=== PATIENT | male | born 1960 | race Caucasian/White ===

== ENCOUNTER 2017-01-19 13:52 | Outpatient (CLI) | payer OTHER ==
[2017-01-19 15:16] LABS: Hematocrit 40.4 % (42.0-52.0); Mean Platelet Volume 7.2 fL (7.4-10.4); White Blood Cell (WBC) Count 7.6 thou/uL (4.8-10.8)
[2017-01-19 15:29] LABS: Anion Gap 12 mmol/L (10-20); BUN (Urea Nitrogen) 21 mg/dL (8.4-25.7); Calc. Creatinine Clearance 0 mL/min (70-130); Calcium 8.4 mg/dL (7.8-10.44); Carbon Dioxide 28 mmol/L (22-29); Chloride 103 mmol/L (98-107); Estimated GFR-MDRD 31
== END 2017-01-19 13:53 | disposition home or self-care (01) ==
LOC: LABBT 13:52
PROVIDERS: ATTEND Neurological Surgery
DX: Z01.818 Encounter for other preprocedural examination (principal); M54.16 Radiculopathy, lumbar region
CPT/HCPCS: 80048; 85027; 93005; 93010

== ENCOUNTER 2017-03-26 12:54 | Emergency (ER) | payer OTHER, SELFPAY ==
[2017-03-26] MEDS ORDERED: Ketorolac Tromethamine 30 MG/ML VIAL ONE (13:46)
[2017-03-26] MEDS ORDERED: Ondansetron HCl/PF 4 MG/2 ML Vial ONE (13:46)
[2017-03-26 13:58] LABS: #Basophils 0.1 thou/uL (0.0-0.2); #Monocytes 0.4 thou/uL (0.11-0.59); %Basophils 0.6 % (0.0-1.0); %Eosinophils 0.2 % (0.0-10.0); %Lymphocytes 11.9 % (21.0-51.0); %Monocytes 5.1 % (0.0-10.0); %Neutrophils 82.2 % (42.0-75.0); Hemoglobin 14.5 g/dL (14.0-18.0); Mean Corpuscular HGB CONC 33.4 g/dL (32.0-36.0); Mean Corpuscular Hemoglobin 29.9 pg (27.0-31.0); Mean Corpuscular Volume 89.7 fl (80.0-94.0); Mean Platelet Volume 7.5 fL (7.4-10.4); Platelet Count 305 thou/uL (130-400); RBC Distribution Width 13.5 % (11.5-14.5); Red Blood Cell (RBC) Count 4.83 mill/uL (4.70-6.10); White Blood Cell (WBC) Count 8.5 thou/uL (4.8-10.8)
[2017-03-26] MEDS ORDERED: ISOVUE-370 76%-LOCM 1 ML ONE (13:58)
[2017-03-26 14:07] LABS: Bilirubin Negative (Negative); Blood, Urine Negative (Negative); Clarity CLEAR (Clear); Glucose, Urine (Dipstick) Negative (Negative); Leukocyte Negative (Negative); Nitrite Negative (Negative); Protein, Urine (Dipstick) Negative (Neg-Trace); Specific Gravity, Urine 1.025 (1.002-1.036); Urobilinogen 0.2 mg/dL (0.2-1.0); pH, Urine 5.5 (5.0-9.0)
[2017-03-26 14:23] LABS: ALT (SGPT) 11 U/L (8-55); AST (SGOT) 16 U/L (5-34); Albumin 3.8 g/dL (3.5-5.0); Alkaline Phosphatase 24 U/L (40-150); Anion Gap 9 mmol/L (10-20); BUN (Urea Nitrogen) 15 mg/dL (8.4-25.7); Bilirubin, Total 0.5 mg/dL (0.2-1.2); CK (CPK) 157 U/L (30-200); CRP (Inflammatory) Less than 0.50 mg/dL (= or < 0.5); Calc. Creatinine Clearance 0 mL/min (70-130); Calcium 8.7 mg/dL (7.8-10.44); Carbon Dioxide 29 mmol/L (22-29); Chloride 100 mmol/L (98-107); Estimated GFR-MDRD 67; Globulin 2.6 g/dL (2.4-3.5); Glucose 112 mg/dL (70-105); Potassium 4.4 mmol/L (3.5-5.1); Protein, Total 6.4 g/dL (6.0-8.3); Sodium 134 mmol/L (136-145)
--- NOTE | 2017-03-26 14:31 | RAD ---
TWO AP VIEWS OF THE CHEST: INDICATION: Severe chest pain and swelling in the left testicle. FINDINGS: The lungs are clear. The cardiomediastinal silhouette is within normal limits. There is no acute os seous abnormality. IMPRESSION: No acute cardiopulmonary abnormality. POS: KATHLEEN
[2017-03-26] MEDS ORDERED: Morphine 4 MG/ML Carpuject ONE (14:36)
--- NOTE | 2017-03-26 14:36 | ULT ---
SCROTAL SONOGRAM WITH DUPLEX EVALUATION: Date: 03/26/17 HISTORY: Left scrotal pain and swelling. FINDINGS: The right testicle is 3.6 cm in length and the left is also 3.6 cm. Each has a normal appearance and demonstrates good color and spectral Doppler flow. Fluid is present within each side of the scrotum. Multiple cysts arise from each epididymis. No solid masses are visible. A large cyst at the midline i s 8.3 x 6.5 x 6.4 cm greatest diameter. IMPRESSION: 1. No evidence of testicular mass or torsion. 2. Hydroceles. Multiple epididymal cysts. POS: [facility]
[2017-03-26 14:39] LABS: CKMB 1.3 ng/mL (0-6.6); Troponin I 0.016 ng/mL (< 0.028)
--- NOTE | 2017-03-26 15:56 | CT ---
CT ABDOMEN WITH CONTRAST CT PELVIS WITH CONTRAST: DATE: 03/26/17 HISTORY: 57-year-old male with severe lower abdominal pain, nausea and vomiting, fever, chills, and discolored urine. COMPARISON: CT abdomen and pelvis of 06/24/15. 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 No hydronephrosis or evidence for pyelonephritis. No solid renal neoplasm identified or large cyst. No abdominal aortic aneurysm. No free fluid or free air within th e abdominal cavity or pelvic cavity. Lung bases are grossly clear. No pleural effusion. Partial visua lization of what appears to be a large hydrocele in the right scrotum, as was previously the case. Th is is incompletely included on the images. No bowel-containing inguinal hernia identified. No major p athology identified involving pancreas, adrenals, or spleen. No small bowel dilation. Moderate to lar ge volume of colonic stool. Diffuse mild mural thickening of the urinary bladder, similar to prior CT . No major interval change identified. In the right lobe of the liver, there are two, subcentimeter, tiny, faint hypodensities which are too small to definitively characterize, in the right lobe of the liver. These are unchanged in size sinc e 2016. IMPRESSION: 1. Horseshoe kidney. 2. Probable constipation. 3. Partial visualization of what is probably right hydrocele, incompletely evaluated. 4. No definite acute findings within the abdominal cavity or pelvic cavity. JEREMY POS: TAI
[2017-03-26] MEDS ORDERED: Lidocaine Viscous Sol 2% 15 ml UD Cup ONE (16:22)
[2017-03-26] MEDS ORDERED: Famotidine/PF 20 mg/2ml Vial ONE (16:22)
[2017-03-26] MEDS ORDERED: Mag-Al 1200 mg/1200 mg/30 ML UDCUP ONE (16:22)
[2017-03-28 20:30] LABS: Chlamydia by PCR Not Detected (NotDetected); GC by PCR Not Detected (NotDetected)
== END 2017-03-26 17:35 | disposition home or self-care (01) ==
LOC: ERS 12:54
DX: N45.1 Epididymitis (principal); K59.00 Constipation, unspecified; F17.210 Nicotine dependence, cigarettes, uncomplicated; Z79.899 Other long term (current) drug therapy
CPT/HCPCS: 71045; 74177; 76870; 80053; 81003; 82550; 82553; 84484; 85025; 85652; 86140; 87491; 87591; 93005; 93976; 96361; 96374; 96375; J1885; J2270; J2405; S0028

== ENCOUNTER 2017-05-26 13:30 | Outpatient (CLI) | payer OTHER ==
[2017-05-26 14:09] LABS: Hemoglobin 13.6 g/dL (14.0-18.0); Mean Corpuscular HGB CONC 33.2 g/dL (32.0-36.0); Mean Corpuscular Hemoglobin 29.7 pg (27.0-31.0); Mean Corpuscular Volume 89.5 fl (80.0-94.0); Mean Platelet Volume 6.6 fL (7.4-10.4); Platelet Count 343 thou/uL (130-400); RBC Distribution Width 13.7 % (11.5-14.5); Red Blood Cell (RBC) Count 4.58 mill/uL (4.70-6.10)
[2017-05-26 14:34] LABS: Anion Gap 12 mmol/L (10-20); BUN (Urea Nitrogen) 13 mg/dL (8.4-25.7); Calc. Creatinine Clearance 0 mL/min (70-130); Calcium 8.5 mg/dL (7.8-10.44); Carbon Dioxide 24 mmol/L (22-29); Chloride 102 mmol/L (98-107); Estimated GFR-MDRD 54; Glucose 102 mg/dL (70-105); Potassium 4.6 mmol/L (3.5-5.1); Sodium 133 mmol/L (136-145)
== END 2017-05-26 13:31 | disposition home or self-care (01) ==
LOC: LABBT 13:30
PROVIDERS: ATTEND Neurological Surgery
DX: Z01.812 Encounter for preprocedural laboratory examination (principal); M54.16 Radiculopathy, lumbar region
CPT/HCPCS: 80048; 85027

== ENCOUNTER 2017-06-01 06:47 | Day surgery (SDC) | payer OTHER ==
--- NOTE | 2017-05-26 13:14 | HP ---
This is Cynthia Mcdonald, Physician Director Game with the Neurosurgery Service. ATTENDING PHYSICIAN: Dr. Bakari Steele. HISTORY OF PRESENT ILLNESS: The patient is a 57-year-old male seen in our office for severe left S1 radiculopathy, which began in 12/2015. He was evaluated with MRI, which revealed a left L5-S1 disk h erniation. We attempted to treat conservatively with steroids; however, he did not respond to any of these measures, therefore, left L5-S1 microdiskectomy was recommended by Dr. Steele. Since his visit with us, he has had an updated MRI, which shows persistent left L5 disk protrusion as well a s cardiac clearance obtained from [facility]. The patient understands the risks, benefits, and alternatives, and wishes to proceed. PAST MEDICAL HISTORY: The patient reports he is otherwise healthy. Denies any other significant med ical problems. PAST SURGICAL HISTORY: Reviewed and negative. SOCIAL HISTORY: The patient does have a history of drinking alcohol socially. He abuses marijuana. He smokes approximately one-half pack of cigarettes per day. He lives at home with his . FAMILY HISTORY: Noncontributory. REVIEW OF SYSTEMS: Per HPI. ALLERGIES: The patient has no known drug allergies. PHYSICAL EXAMINATION: GENERAL: The patient is in no acute distress. HEAD: Normocephalic and atraumatic. EYES: PERRLA. Extraocular movements are intact. ENT: Mucosa pink and intact. CARDIAC: Regular rate and rhythm. LUNGS: The patient is breathing comfortably. MUSCULOSKELETAL: No focal motor deficits. No reflex asymmetry. Good muscle tone to bilateral upper and lower extremities. NEUROLOGIC: Alert and oriented x4. No focal neurologic deficits are appreciated. ASSESSMENT AND PLAN: The left L5-S1 disk herniation with plans for left L5-S1 microdiskectomy. The patient understands the risks, benefits, alternatives, and wishes to proceed.
[2017-05-26 14:07] VITALS: BMI 24.3
[2017-06-01] MEDS ORDERED: CEFAZOLIN/Water 2 GM/20 ML SYRINGE ONE (07:55)
[2017-06-01] MEDS ORDERED: Midazolam HCl 2 mg/2 ml Vial ONE (09:02)
[2017-06-01] MEDS ORDERED: Fentanyl 100 MCG/2 ML VIAL ONE ×3 (09:02→10:40)
[2017-06-01] MEDS ORDERED: Morphine 4 MG/ML VIAL ONE ×2 (10:30→10:55)
--- NOTE | 2017-06-01 10:44 | OP ---
DATE OF PROCEDURE: 06/01/2017 SURGEON: Bakari Steele M.D. RESEARCH AFFILIATE: TAMMIE Christopher PROCEDURE: Left L5-S1 microdiskectomy. PROCEDURE IN DETAIL: The patient was brought into the room, intubated. He was rolled in the prone p osition on gel-filled chest rolls. Incision was made exposing left L5-S1 and our level was confirmed by x-ray. We performed a complete left L5-S1 facetectomy, laminectomy, and foraminotomy. We incise d the L5-S1 disc and debrided of any bulging fragments. We completely decompressed the left L5 nerve root throughout its foraminal course and the left S1 nerve root in the lateral recess. It was then extensively irrigated, immaculate hemostasis was secured. Vancomycin powder was applied and the woun d was closed in anatomic layers.
[2017-06-01] MEDS ORDERED: Lidocaine 1% PF 5 ML VIAL ONE (10:47)
[2017-06-01] MEDS ORDERED: Glycopyrrolate 0.2 MG/ML 5 ML SYRINGE ONE (10:47)
[2017-06-01] MEDS ORDERED: Ondansetron HCl/PF 4 MG/2 ML Vial ONE (10:47)
[2017-06-01] MEDS ORDERED: Ketorolac Tromethamine 30 MG/ML VIAL ONE (10:47)
[2017-06-01] MEDS ORDERED: PHENYLEPHRINE-NS 100 MCG/ML 10 ML SYRINGE ONE (10:47)
[2017-06-01] MEDS ORDERED: Dexamethasone 20 MG/5 ML VIAL ONE (10:47)
[2017-06-01] MEDS ORDERED: Propofol 200 MG/20 ML VIAL ONE (10:47)
[2017-06-01] MEDS ORDERED: HYDROcodone/Acetaminophen 5/325 mg Tablet ONE (12:07)
== END 2017-06-01 13:41 | disposition home or self-care (01) ==
LOC: SDC 06:47
PROVIDERS: ATTEND Neurological Surgery
PROC: 01NB0ZZ Release Lumbar Nerve, Open Approach (ICD-10-PCS; principal; 2017-06-01)
PROC: 0ST20ZZ Resection of Lumbar Vertebral Disc, Open Approach (ICD-10-PCS; principal; 2017-06-01)
DX: M51.17 Intervertebral disc disorders with radiculopathy, lumbosacral region (principal); F17.210 Nicotine dependence, cigarettes, uncomplicated; F12.10 Cannabis abuse, uncomplicated; Z79.899 Other long term (current) drug therapy
CPT/HCPCS: 76001; 96374; J0131; J2250; J2270; J3010; J3370

== ENCOUNTER 2017-10-13 23:59 | Emergency (ER) | payer OTHER, SELFPAY ==
[2017-10-14] MEDS ORDERED: Ibuprofen 800 MG TAB ONE (00:19)
--- NOTE | 2017-10-14 08:19 | RAD ---
RIGHT HAND 3 VIEWS: HISTORY: Injury, right hand pain. FINDINGS: Degenerative changes are present. No acute fracture or dislocation is identified. POS: OFF
--- NOTE | 2017-10-14 08:21 | RAD ---
LEFT HAND 3 VIEWS: HISTORY: Injury, left hand pain. FINDINGS: Degenerative changes are present. No acute fracture or dislocation is identified. POS: OFF
== END 2017-10-14 00:38 | disposition home or self-care (01) ==
LOC: ERS 23:59
DX: S60.222A Contusion of left hand, initial encounter (principal); S60.221A Contusion of right hand, initial encounter; F17.210 Nicotine dependence, cigarettes, uncomplicated; Z79.899 Other long term (current) drug therapy

== ENCOUNTER 2018-08-04 00:43 | Emergency (ER) | payer SELFPAY ==
[2018-08-04] MEDS ORDERED: Ondansetron PF 4 MG/2 ML Vial ONE ×2 (00:53→01:18)
[2018-08-04] MEDS ORDERED: Morphine 4 MG/ML VIAL ONE (01:04)
[2018-08-04 01:22] LABS: #Eosinphils 0.1 thou/uL (0.0-0.7); #Lymphocytes 1.4 thou/uL (1.20-3.40); #Monocytes 0.4 thou/uL (0.11-0.59); #Neutrophils 7.3 thou/uL (1.40-6.50); %Basophils 0.2 % (0.0-1.0); %Eosinophils 1.2 % (0.0-10.0); %Lymphocytes 14.8 % (21.0-51.0); %Monocytes 4.2 % (0.0-10.0); %Neutrophils 79.6 % (42.0-75.0); Hemoglobin 13.4 g/dL (14.0-18.0); Mean Corpuscular HGB CONC 34.2 g/dL (32.0-36.0); Mean Corpuscular Hemoglobin 30.3 pg (27.0-31.0); Mean Corpuscular Volume 88.7 fL (78.0-98.0); Mean Platelet Volume 7.4 fL (7.4-10.4); Platelet Count 303 thou/uL (130-400); RBC Distribution Width 13.8 % (11.5-14.5); Red Blood Cell (RBC) Count 4.43 mill/uL (4.70-6.10); White Blood Cell (WBC) Count 9.1 thou/uL (4.8-10.8)
[2018-08-04 01:43] LABS: ALT (SGPT) 25 U/L (8-55); AST (SGOT) 24 U/L (5-34); Albumin 4.1 g/dL (3.5-5.0); Alkaline Phosphatase 32 U/L (40-150); Anion Gap 17 mmol/L (10-20); BUN (Urea Nitrogen) 16 mg/dL (8.4-25.7); Bilirubin, Total 0.2 mg/dL (0.2-1.2); CK (CPK) 164 U/L (30-200); Calc. Creatinine Clearance 0 mL/min (70-130); Calcium 9.6 mg/dL (7.8-10.44); Carbon Dioxide 24 mmol/L (22-29); Chloride 98 mmol/L (98-107); Estimated GFR-MDRD 63; Globulin 2.8 g/dL (2.4-3.5); Glucose 114 mg/dL (70-105); Lipase 23 U/L (8-78); Potassium 4.1 mmol/L (3.5-5.1); Protein, Total 6.9 g/dL (6.0-8.3); Sodium 135 mmol/L (136-145)
[2018-08-04 02:00] LABS: Bilirubin Negative (Negative); Blood, Urine Negative (Negative); Clarity CLOUDY (Clear); Glucose, Urine (Dipstick) Negative (Negative); Leukocyte Negative (Negative); Nitrite Negative (Negative); Protein, Urine (Dipstick) Negative (Neg-Trace); Specific Gravity, Urine 1.018 (1.002-1.036); Urobilinogen 0.2 mg/dL (0.2-1.0)
--- NOTE | 2018-08-04 09:41 | CT ---
PRELIMINARY REPORT/[facility]/EMERGENCY AFTER HOURS PROCEDURE: EXAM: CT Abdomen and Pelvis With Contrast EXAM DATE/TIME: 08/04/2018 1:26 AM CLINICAL HISTORY: 58 years old, male; Epigastric; Patient HX: M58 reports to ED with C/O abdominal pain and vomitting. Patient reports that this stomach pain started approx. 2 months ago and describes episodes of pain as occurring "every couple weeks at first" and now as "once to twice a week. " patient reports that the pain is constant and reports diarrhea, with no blood or stool color change. Patient reports he has "hot and cold flashes". TECHNIQUE: Imaging protocol: Axial computed tomography images of the abdomen and pelvis with intravenous contras t. Coronal reformatted images were created and reviewed. COMPARISON: No relevant prior studies available. FINDINGS: Lungs: Calcified granuloma within the posterior right lower lobe. ABDOMEN: Liver: Normal. Gallbladder and bile ducts: Normal. Pancreas: Normal. Spleen: Normal. Adrenals: Normal. Kidneys and ureters: Horseshoe renal configuration, without acute complications. Stomach and bowel: Moderate gas and stool distention of the colon, without evidence of obstruction. N ondilated, gas and fluid-filled small bowel, which is a nonspecific finding, but can be seen with ent eritis. Appendix: No evidence of appendicitis. PELVIS: Bladder: Unremarkable as visualized. Reproductive: Probable bilateral hydroceles, not definitively characterized on this study. ABDOMEN and PELVIS: Intraperitoneal space: Small amount of pelvic free fluid. Bones/joints: No acute abnormality. Soft tissues: Normal. Vasculature: Atherosclerotic disease of the abdominal aorta and iliac arteries. Lymph nodes: Normal. No enlarged lymph nodes. IMPRESSION: 1. Moderate gas and stool distention of the colon, without evidence of obstruction. 2. Nondilated, gas and fluid-filled small bowel, which is a nonspecific finding, but can be seen with enteritis. 3. Probable bilateral hydroceles, not definitively characterized on this study. Thank you for allowing us to participate in the care of your patient. Dictated and Authenticated by: Norbert Carrasquillo MD 08/04/2018 3:05 AM Central Time ([place] & [place]) FINAL REPORT CT ABDOMEN AND PELVIS WITH IV CONTRAST: Date: 08-04-18 Performed on emergency basis at 0128 hours. History: Abdominal pain. Comparison: 03-26-17 FINDINGS: I agree with the preliminary report by Dr. Carrasquillo from [facility]. Horseshoe kidney again demo nstrated. Gaseous distention of the colon. No evidence of bowel obstruction. Bilateral hydroceles par tially visualized. Code QA POS: [facility]
== END 2018-08-04 04:22 | disposition home or self-care (01) ==
LOC: ERS 00:43
DX: R10.9 Unspecified abdominal pain (principal); R11.2 Nausea with vomiting, unspecified; R19.7 Diarrhea, unspecified; F17.210 Nicotine dependence, cigarettes, uncomplicated
CPT/HCPCS: 74177; 80053; 81003; 82550; 83690; 84484; 85025; 93005; 96361; 96372; 96374; 96375; J0500; J2270; J2405

== ENCOUNTER 2021-04-21 16:27 | Emergency (ER) | payer SELFPAY ==
[~2021-04-21 16:27] MED LIST: Iopamidol 370 76% 100 ML VIAL ONE
[2021-04-21] MEDS ORDERED: Morphine 10 MG/ML VIAL ONE (17:15)
[2021-04-21] MEDS ORDERED: Famotidine/PF 20 mg/2ml Vial ONE (17:16)
[2021-04-21] MEDS ORDERED: Ondansetron PF 4 MG/2 ML Vial ONE (17:17)
[2021-04-21 17:25] LABS: #Eosinphils 0.1 thou/uL (0.0-0.7); #Lymphocytes 1.1 thou/uL (1.20-3.40); #Monocytes 0.7 thou/uL (0.11-0.59); #Neutrophils 6.9 thou/uL (1.40-6.50); %Basophils 0.1 % (0.0-1.0); %Eosinophils 0.8 % (0.0-10.0); %Lymphocytes 12.8 % (21.0-51.0); %Monocytes 7.6 % (0.0-10.0); %Neutrophils 78.8 % (42.0-75.0); Hemoglobin 13.3 g/dL (14.0-18.0); Mean Corpuscular HGB CONC 32.9 g/dL (32.0-36.0); Mean Corpuscular Hemoglobin 30.6 pg (27.0-31.0); Mean Corpuscular Volume 93.1 fL (78.0-98.0); Mean Platelet Volume 7.1 fL (7.4-10.4); Platelet Count 358 thou/uL (130-400); RBC Distribution Width 13.3 % (11.5-14.5); Red Blood Cell (RBC) Count 4.36 mill/uL (4.70-6.10); White Blood Cell (WBC) Count 8.8 thou/uL (4.8-10.8)
[2021-04-21] MEDS ORDERED: Sucralfate 1 GM/10 ML UDCUP PO SCH (17:30)
[2021-04-21 17:46] LABS: ALT (SGPT) 11 U/L (8-55); AST (SGOT) 11 U/L (5-34); Alkaline Phosphatase 34 U/L (40-110); Anion Gap 14 mmol/L (10-20); BUN (Urea Nitrogen) 21 mg/dL (8.4-25.7); Bilirubin, Total 0.4 mg/dL (0.2-1.2); Calc. Creatinine Clearance 0 mL/min (70-130); Calcium 9.3 mg/dL (7.8-10.44); Carbon Dioxide 26 mmol/L (22-29); Chloride 98 mmol/L (98-107); Globulin 3.2 g/dL (2.4-3.5); Glucose 133 mg/dL (70-105); Lipase 18 U/L (8-78); Potassium 4.8 mmol/L (3.5-5.1); Protein, Total 7.2 g/dL (6.0-8.3); Sodium 133 mmol/L (136-145)
[2021-04-21] MEDS ORDERED: Sucralfate 1 GM/10 ML UDCUP ONE (17:46)
== END 2021-04-21 18:20 | disposition home or self-care (01) ==
LOC: ERS 16:27
DX: R10.13 Epigastric pain (principal); R11.0 Nausea; F17.210 Nicotine dependence, cigarettes, uncomplicated
CPT/HCPCS: 36415; 71045; 74177; 80053; 83605; 83690; 84484; 85025; 93005; 94760; 96374; 96375; J2270; J2405; Q9967; S0028

== ENCOUNTER 2021-10-21 13:38 | Emergency (ER) | payer SELFPAY ==
[2021-10-21 14:05] LABS: #Lymphocytes 1.1 thou/uL (1.20-3.40); #Monocytes 0.4 thou/uL (0.11-0.59); #Neutrophils 5.4 thou/uL (1.40-6.50); %Basophils 0.1 % (0.0-1.0); %Eosinophils 0.2 % (0.0-10.0); %Lymphocytes 15.9 % (21.0-51.0); %Monocytes 6.3 % (0.0-10.0); %Neutrophils 77.5 % (42.0-75.0); Hemoglobin 15.6 g/dL (14.0-18.0); Mean Corpuscular Hemoglobin 29.3 pg (27.0-31.0); Mean Platelet Volume 7.5 fL (7.4-10.4); Platelet Count 331 thou/uL (130-400); RBC Distribution Width 15.5 % (11.5-14.5); Red Blood Cell (RBC) Count 5.31 mill/uL (4.70-6.10); White Blood Cell (WBC) Count 6.9 thou/uL (4.8-10.8)
[2021-10-21 14:26] LABS: ALT (SGPT) 11 U/L (8-55); AST (SGOT) 15 U/L (5-34); Albumin 4.1 g/dL (3.5-5.0); Alkaline Phosphatase 38 U/L (40-110); Anion Gap 15 mmol/L (10-20); BUN (Urea Nitrogen) 19 mg/dL (8.4-25.7); Bilirubin, Total 0.4 mg/dL (0.2-1.2); Calc. Creatinine Clearance 0 mL/min (70-130); Calcium 9.6 mg/dL (7.8-10.44); Carbon Dioxide 35 mmol/L (22-29); Chloride 90 mmol/L (98-107); Estimated GFR 67; Globulin 3.2 g/dL (2.4-3.5); Glucose 127 mg/dL (70-105); Lipase 17 U/L (8-78); Potassium 3.7 mmol/L (3.5-5.1); Protein, Total 7.3 g/dL (6.0-8.3); Sodium 136 mmol/L (136-145)
[2021-10-21] MEDS ORDERED: Mag-Al 1200 mg/1200 mg/30 ML UDCUP ONE (16:23)
[2021-10-21] MEDS ORDERED: Lidocaine Viscous Sol 2% 15 ml UD Cup ONE (16:23)
== END 2021-10-21 16:30 | disposition home or self-care (01) ==
LOC: ERS 13:38
DX: K21.00 Gastro-esophageal reflux disease with esophagitis, without bleeding (principal); F17.210 Nicotine dependence, cigarettes, uncomplicated
CPT/HCPCS: 36415; 71045; 80053; 83690; 84484; 85025; 93005; 94760

== ENCOUNTER 2022-03-02 17:00 | Emergency (ER) | payer SELFPAY ==
[~2022-03-02 17:00] MED LIST changes: -Iopamidol 370 76% 100 ML VIAL ONE; +Iopamidol-370 76% 500 ML 1 ML ONE
[2022-03-02 17:39] LABS: Bilirubin Negative (Negative); Blood, Urine Negative (Negative); Clarity Clear (Clear); Glucose, Urine (Dipstick) Normal (Negative); Ketone, Urine 10 mg/dL (Negative); Leukocyte Negative Leu/uL (Negative); Nitrite Negative (Negative); Protein, Urine (Dipstick) Negative (Neg-Trace); Specific Gravity, Urine 1.028 (1.002-1.036); Urobilinogen Normal mg/dL (Less than 2); pH, Urine 6.5 (5.0-9.0)
[2022-03-02] MEDS ORDERED: Ondansetron PF 4 MG/2 ML Vial ONE (17:42)
[2022-03-02] MEDS ORDERED: Ketorolac Tromethamine 30 MG/ML VIAL ONE (17:43)
[2022-03-02 17:54] LABS: #Eosinphils 0.1 thou/uL (0.0-0.7); #Lymphocytes 1.1 thou/uL (1.20-3.40); #Monocytes 0.6 thou/uL (0.11-0.59); #Neutrophils 7.3 thou/uL (1.40-6.50); %Basophils 0.3 % (0.0-1.0); %Lymphocytes 12.5 % (21.0-51.0); %Neutrophils 79.2 % (42.0-75.0); Hemoglobin 14.1 g/dL (14.0-18.0); Mean Corpuscular HGB CONC 33.9 g/dL (32.0-36.0); Mean Corpuscular Hemoglobin 30.1 pg (27.0-31.0); Mean Corpuscular Volume 88.7 fl (78.0-98.0); Mean Platelet Volume 7.5 fL (7.4-10.4); Platelet Count 370 10x3/uL (130-400); RBC Distribution Width 13.9 % (11.5-14.5); Red Blood Cell (RBC) Count 4.68 mill/uL (4.70-6.10); White Blood Cell (WBC) Count 9.2 10x3/uL (4.8-10.8)
[2022-03-02 18:17] LABS: ALT (SGPT) 12 U/L (8-55); AST (SGOT) 16 U/L (5-34); Alkaline Phosphatase 37 U/L (40-110); Anion Gap 13 mmol/L (10-20); BUN (Urea Nitrogen) 22 mg/dL (8.4-25.7); Bilirubin, Total 0.5 mg/dL (0.2-1.2); Calc. Creatinine Clearance 0 mL/min (70-130); Calcium 9.1 mg/dL (7.8-10.44); Carbon Dioxide 25 mmol/L (22-29); Chloride 101 mmol/L (98-107); Estimated GFR 79; Globulin 3.3 g/dL (2.4-3.5); Glucose 109 mg/dL (70-105); Lipase 19 U/L (8-78); Potassium 4.2 mmol/L (3.5-5.1); Protein, Total 7.3 g/dL (6.0-8.3); Sodium 135 mmol/L (136-145)
[2022-03-02] MEDS ORDERED: Mag-Al 1200 mg/1200 mg/30 ML UDCUP ONE (19:35)
[2022-03-02] MEDS ORDERED: Lidocaine Viscous Sol 2% 15 ml UD Cup ONE (19:35)
== END 2022-03-02 19:50 | disposition home or self-care (01) ==
LOC: ERS 17:00
DX: R10.9 Unspecified abdominal pain (principal); K21.9 Gastro-esophageal reflux disease without esophagitis; F17.210 Nicotine dependence, cigarettes, uncomplicated
CPT/HCPCS: 74177; 80053; 81003; 83690; 85025; 96374; 96375; J1885; J2405; Q9967